=== PATIENT | male | born 1995 | race Caucasian/White ===

== ENCOUNTER 2020-09-08 18:12 | Inpatient (IN) | payer OTHER ==
[~2020-09-08] VITALS: Ht 177.8 cm; Wt 82.9 kg
[2020-09-08] MEDS ORDERED: SODIUM CHLORIDE 0.9% 1,000ML IVBOLUS ONE (18:30)
[2020-09-08] MEDS ORDERED: SODIUM CHLORIDE FLUSH 10ML SYR IVF ONE (18:30)
[2020-09-08 19:02] LABS: BASOPHILS % (AUTO) 0 % (0-1); EOSINOPHILS % (AUTO) 0 % (1-7); LYMPHOCYTES % (AUTO) 4 % (22-44); MEAN CORPUSCULAR HEMOGLOBIN 31.9 pg (27.5-34.5); MEAN CORPUSCULAR HGB CONC 35.9 g/dL (33.2-36.2); MEAN PLATELET VOLUME 8.1 fL (7.4-10.4); MONOCYTES % (AUTO) 13 % (2-9); NEUTROPHILS % (AUTO) 83 % (42-75); PLATELET COUNT 219 x10^3/uL (130-400); RED BLOOD COUNT 4.74 x10^6/uL (4.38-5.82); RED CELL DISTRIBUTION WIDTH 14.2 % (9.4-14.8)
--- NOTE | 2020-09-08 19:09 | NUR ---
REPORT GIVEN TO CLAUDIO OCAMPO.
[2020-09-08 19:10] LABS: ANION GAP 12 mmol/L (5-15); CALCIUM 7.4 mg/dL (8.5-10.1); CHLORIDE 77 mmol/L (98-107); CREATININE 0.71 mg/dL (0.7-1.3)
[2020-09-08 19:23] LABS: MD SCAN
--- NOTE | 2020-09-08 19:23 | NUR ---
[facility] E[facility] 0.458 ERP NOTIFIED AT 1919.
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
[2020-09-08] MEDS ORDERED: OMNIPAQUE 350 MG/ML, 100ML BOTTLE ONE (19:52)
[2020-09-08] MEDS ORDERED: POTASSIUM CHLORIDE 20 MEQ TAB.ER.PRT PO ONE (20:00)
[2020-09-08] MEDS ORDERED: POTASSIUM CHLORIDE 40 MEQ in SODIUM CHLORIDE 0.9% 500 ML IV ONE (20:00)
[2020-09-08] MEDS ORDERED: POTASSIUM CHLORIDE 20 MEQ TAB.ER.PRT ONE (20:02)
--- NOTE | 2020-09-08 20:07 | NUR ---
PT STATES AND FAMILY STATES THAT PT HAS NOT EATEN IN 1 WEEK.
--- NOTE | 2020-09-08 20:13 | NUR ---
PT TO CT
--- NOTE | 2020-09-08 20:21 | NUR ---
PT BACK FROM CT VOMITTED SMALL AMOUNT 10ML.
[2020-09-08] MEDS ORDERED: MAGNESIUM SULFATE PMX 2GM/50ML 50 ML IV ONE (20:30)
[2020-09-08] MEDS ORDERED: AMPICILLIN/SULBACTAM 3 GM in SODIUM CHLORIDE 0.9% 100 ML IV ONE (20:30)
[2020-09-08] MEDS ORDERED: MAGNESIUM SULFATE PMX 2GM/50ML 50 ML ONE (20:45)
--- NOTE | 2020-09-08 21:00 | NUR ---
VERBAL ORDER RECIEVED BY MD HUSSEIN FOR 1 MG ATIVAN IV PUSH.
[2020-09-08] MEDS ORDERED: LORazepam 2 MG/ML, 1ML ONE (21:07)
[2020-09-08] MEDS ORDERED: VANCOMYCIN PER PHARMACY MC PRN (22:00)
[2020-09-08] MEDS ORDERED: VANCOMYCIN PMX 1GM/200ML 200 ML IV ONE (22:00)
[2020-09-08] MEDS ORDERED: PROMETHAZINE 25 MG/ML, 1ML IM PRN (22:30)
[2020-09-08] MEDS ORDERED: POLYETHYLENE GLYCOL 17 GM PACKET PO PRN (22:30)
[2020-09-08] MEDS ORDERED: LORazepam 1MG TABLET PO PRN ×4 (22:30)
[2020-09-08] MEDS ORDERED: ONDANSETRON 2MG/ML, 2ML IVPush PRN (22:30)
[2020-09-08] MEDS ORDERED: LORazepam 2 MG/ML, 1ML IV PRN ×5 (22:30)
[2020-09-08] MEDS ORDERED: INSTRUCTION SEE COMMENTS XX ONE (22:30)
[2020-09-08] MEDS ORDERED: OXYcodone IR 5MG TABLET PO PRN (22:30)
[2020-09-08] MEDS ORDERED: LABETALOL 5MG/ML, 20ML IV PRN (22:30)
[2020-09-08] MEDS ORDERED: PHARMACOKINETIC MONITORING MC PRN (22:30)
[2020-09-08] MEDS ORDERED: DOCUSATE 100 MG CAPSULE PO PRN (22:30)
[2020-09-08] MEDS ORDERED: LORazepam 0.5MG TABLET PO PRN (22:30)
[2020-09-08] MEDS ORDERED: ENALAPRILAT 1.25 MG/ML, 2ML IV PRN (22:30)
[2020-09-08] MEDS ORDERED: PHARMACOKINETIC CONSULTATION MC ONE (22:30)
[2020-09-08] MEDS ORDERED: BISACODYL 10 MG SUPP PR PRN (22:30)
[2020-09-08] MEDS ORDERED: VANCOMYCIN 1,700 MG in SODIUM CHLORIDE 0.9% 250 ML IV ONE (22:30)
[2020-09-08] MEDS ORDERED: ONDANSETRON 4 MG TABLET PO PRN (22:30)
--- NOTE | 2020-09-08 22:40 | NUR ---
PT HAS SPIT UP APPROXIMATELY 50ML OF BLOOD SPUTUM IN THE LAST 3HOURS
--- NOTE | 2020-09-08 22:49 | NUR ---
REPORT GIVEN TO GIOVANNY SNYDER. 544.
--- NOTE | 2020-09-08 22:50 | NUR ---
MOTHER PHONE [phone] BROTHER TY PHONE [phone] ROMERO ALSO INQUIRED OF A COVID TEST IN CASE OF SURGERY.
--- NOTE | 2020-09-08 23:10 | NUR ---
PT DID URINATE APPROXIMATELY 1500ML OVER TOTAL OF 5 DIFFERNT OCCURENCES.
[2020-09-09 00:35] LABS: AMPHETAMINE SCREEN, URINE Negative (Negative); BARBITURATE SCREEN, URINE Negative (Negative); BENZODIAZEPINE SCREEN, URINE Negative (Negative); CANNABINOID SCREEN, URINE Positive (Negative); COCAINE SCREEN, URINE Negative (Negative); METHADONE SCREEN, URINE Negative (Negative); OPIATE SCREEN, URINE Negative (Negative)
[2020-09-09] MEDS: PANTOPRAZOLE 40 MG IV IVPush SCH ×2 (00:40→12:56)
[2020-09-09 04:49] LABS: BASOPHILS % (AUTO) 0 % (0-1); EOSINOPHILS % (AUTO) 0 % (1-7); LYMPHOCYTES % (AUTO) 2 % (22-44); MEAN CORPUSCULAR HEMOGLOBIN 31.9 pg (27.5-34.5); MEAN CORPUSCULAR HGB CONC 35.6 g/dL (33.2-36.2); MEAN PLATELET VOLUME 8.1 fL (7.4-10.4); MONOCYTES % (AUTO) 12 % (2-9); NEUTROPHILS % (AUTO) 86 % (42-75); PLATELET COUNT 163 x10^3/uL (130-400); RED BLOOD COUNT 4.01 x10^6/uL (4.38-5.82); RED CELL DISTRIBUTION WIDTH 14.7 % (9.4-14.8)
[2020-09-09 04:56] LABS: INTERNATIONAL NORMALIZED RATIO 1.01 (0.93-1.1); PROTHROMBIN TIME 10.8 Seconds (9.6-11.5)
[2020-09-09 04:59] LABS: ALBUMIN 2.8 g/dL (3.4-5.0); ANION GAP 15 mmol/L (5-15); CALCIUM 7.5 mg/dL (8.5-10.1); CHLORIDE 84 mmol/L (98-107)
[2020-09-09 05:02] LABS: ALANINE AMINOTRANSFERASE 178 U/L (12-78); ALKALINE PHOSPHATASE 90 U/L (45-117); BILIRUBIN,TOTAL 1.4 mg/dL (0.2-1.0); CHOL/HDL RATIO 3.2; CHOLESTEROL, TOTAL 233 mg/dL (140-239); CREATININE 0.51 mg/dL (0.7-1.3); HDL CHOL % 31 % (26-37); HDL CHOLESTEROL (DIRECT) 72 mg/dL (40-60); LDL CHOLESTEROL,CALCULATED 149 mg/dL (54-169); LDL/HDL RATIO 2.1 (0.5-3.0); TOTAL PROTEIN 5.8 g/dL (6.4-8.2); TRIGLYCERIDES 59 mg/dL (50-200); VLDL CHOLESTEROL 12 mg/dL (0-25)
[2020-09-09] MEDS ORDERED: LORazepam 2 MG/ML, 1ML IVPush ONE (05:30)
[2020-09-09 05:46] LABS: MD SCAN
[2020-09-09] MEDS ORDERED: CHLORDIAZEPOXIDE 25 MG CAPSULE PO SCH ×2 (06:30→14:30)
[2020-09-09] MEDS ORDERED: LORazepam 2 MG/ML, 1ML IVPush PRN (06:30)
[2020-09-09] MEDS: LEVETIRACETAM 500 MG in SODIUM CHLORIDE 0.9% 100 ML IV SCH ×2 (06:44→18:37)
[2020-09-09] MEDS ORDERED: PHENOBARBITAL SODIUM IVPB ONE (07:30)
[2020-09-09] MEDS ORDERED: CHLORDIAZEPOXIDE 25 MG CAPSULE PO ONE (07:30)
[2020-09-09] MEDS ORDERED: PHARMACY INSTRUCTION MC PRN ×4 (07:30)
[2020-09-09] MEDS ORDERED: SODIUM CHLORIDE 0.9% IVPB ONE (07:30)
[2020-09-09] MEDS: POTASSIUM CHLORIDE 20 MEQ TAB.ER.PRT PO SCH ×3 (08:00→16:20)
[2020-09-09] MEDS: AMPICILLIN/SULBACTAM 3 GM in SODIUM CHLORIDE 0.9% 100 ML IV SCH ×3 (08:15→18:40)
[2020-09-09] MEDS: MULTIVITAMINS/MINERALS TABLET PO SCH (08:15)
[2020-09-09] MEDS: POTASSIUM CHLORIDE 20 MEQ, MAGNESIUM SULFATE 1 GM, THIAMINE 200 MG, FOLIC ACID 1 MG, MV... IV SCH (09:22)
[2020-09-09] MEDS: VANCOMYCIN 1,400 MG in SODIUM CHLORIDE 0.9% 250 ML IV SCH ×2 (11:25→22:08)
[2020-09-09] MEDS: PHENOBARBITAL 20 MG/5 ML ORAL SOL PO SCH (16:20)
[2020-09-10] MEDS: PANTOPRAZOLE 40 MG IV IVPush SCH ×2 (00:14→13:29)
[2020-09-10] MEDS: AMPICILLIN/SULBACTAM 3 GM in SODIUM CHLORIDE 0.9% 100 ML IV SCH ×4 (00:14→20:06)
[2020-09-10] MEDS: PHENOBARBITAL 20 MG/5 ML ORAL SOL PO SCH ×2 (03:36→15:56)
[2020-09-10 04:49] LABS: BASOPHILS % (AUTO) 0 % (0-1); EOSINOPHILS % (AUTO) 1 % (1-7); LYMPHOCYTES % (AUTO) 7 % (22-44); MEAN CORPUSCULAR HEMOGLOBIN 32.6 pg (27.5-34.5); MEAN CORPUSCULAR HGB CONC 35.8 g/dL (33.2-36.2); MEAN PLATELET VOLUME 8.5 fL (7.4-10.4); MONOCYTES % (AUTO) 12 % (2-9); NEUTROPHILS % (AUTO) 79 % (42-75); PLATELET COUNT 138 x10^3/uL (130-400); RED BLOOD COUNT 3.76 x10^6/uL (4.38-5.82); RED CELL DISTRIBUTION WIDTH 14.4 % (9.4-14.8)
[2020-09-10 04:51] LABS: MD NO
[2020-09-10 05:06] LABS: CHLORIDE 99 mmol/L (98-107)
[2020-09-10 05:15] LABS: ALANINE AMINOTRANSFERASE 131 U/L (12-78); ALBUMIN 2.5 g/dL (3.4-5.0); ALKALINE PHOSPHATASE 89 U/L (45-117); ANION GAP 10 mmol/L (5-15); BILIRUBIN,TOTAL 1.1 mg/dL (0.2-1.0); TOTAL PROTEIN 5.5 g/dL (6.4-8.2)
[2020-09-10] MEDS: LEVETIRACETAM 500 MG in SODIUM CHLORIDE 0.9% 100 ML IV SCH ×2 (06:04→21:12)
[2020-09-10] MEDS: POTASSIUM CHLORIDE 20 MEQ, MAGNESIUM SULFATE 1 GM, THIAMINE 200 MG, FOLIC ACID 1 MG, MV... IV SCH (06:09)
[2020-09-10] MEDS ORDERED: POTASSIUM CHLORIDE 20 MEQ PACKET PO ONE (08:30)
[2020-09-10] MEDS ORDERED: POTASSIUM PHOSPHATE 44 MEQ in SODIUM CHLORIDE 0.9% 500 ML IV ONE (08:30)
[2020-09-10] MEDS ORDERED: POTASSIUM PHOSPHATE 88 MEQ in SODIUM CHLORIDE 0.9% 1,000 ML IV ONE (09:00)
[2020-09-10] MEDS: MULTIVITAMINS/MINERALS TABLET PO SCH (09:04)
[2020-09-10 10:40] LABS: VANCOMYCIN,TROUGH 4.7 mcg/mL (5.0-10.0)
[2020-09-10] MEDS: VANCOMYCIN 1,400 MG in SODIUM CHLORIDE 0.9% 250 ML IV SCH (10:55)
[2020-09-10] MEDS: VANCOMYCIN 1,100 MG in SODIUM CHLORIDE 0.9% 250 ML IV SCH ×2 (18:21→20:05)
[2020-09-10 18:34] LABS: OCCULT BLOOD POSITIVE (NEGATIVE)
[2020-09-10 19:26] VITALS: BP 139/82
[2020-09-10] MEDS: ACETAMINOPHEN 325 MG TABLET PO PRN (20:10)
[2020-09-11 00:06] VITALS: BP 138/80
[2020-09-11] MEDS: AMPICILLIN/SULBACTAM 3 GM in SODIUM CHLORIDE 0.9% 100 ML IV SCH ×4 (02:00→22:08)
[2020-09-11] MEDS: PANTOPRAZOLE 40 MG IV IVPush SCH ×2 (02:00→13:39)
[2020-09-11] MEDS: PHENOBARBITAL 20 MG/5 ML ORAL SOL PO SCH ×2 (04:15→16:19)
[2020-09-11 05:50] LABS: BASOPHILS % (AUTO) 1 % (0-1); EOSINOPHILS % (AUTO) 4 % (1-7); LYMPHOCYTES % (AUTO) 14 % (22-44); MEAN CORPUSCULAR HEMOGLOBIN 32.7 pg (27.5-34.5); MEAN CORPUSCULAR HGB CONC 35.5 g/dL (33.2-36.2); MEAN PLATELET VOLUME 8.4 fL (7.4-10.4); MONOCYTES % (AUTO) 12 % (2-9); NEUTROPHILS % (AUTO) 69 % (42-75); PLATELET COUNT 153 x10^3/uL (130-400); RED BLOOD COUNT 3.54 x10^6/uL (4.38-5.82); RED CELL DISTRIBUTION WIDTH 14.3 % (9.4-14.8)
[2020-09-11 05:56] LABS: ALBUMIN 2.4 g/dL (3.4-5.0); ANION GAP 8 mmol/L (5-15); CALCIUM 7.6 mg/dL (8.5-10.1); CHLORIDE 105 mmol/L (98-107)
[2020-09-11 06:00] LABS: ALANINE AMINOTRANSFERASE 104 U/L (12-78); ALKALINE PHOSPHATASE 76 U/L (45-117); BILIRUBIN,TOTAL 0.7 mg/dL (0.2-1.0); CREATININE 0.53 mg/dL (0.7-1.3); TOTAL PROTEIN 5.4 g/dL (6.4-8.2)
[2020-09-11 06:02] LABS: MD NO
[2020-09-11 06:48] VITALS: BP 138/87
[2020-09-11] MEDS ORDERED: POTASSIUM CHLORIDE 40 MEQ in SODIUM CHLORIDE 0.9% 500 ML IV ONE (09:00)
[2020-09-11] MEDS ORDERED: POTASSIUM CHLORIDE 20 MEQ TAB.ER.PRT PO ONE (09:00)
[2020-09-11] MEDS: MULTIVITAMINS/MINERALS TABLET PO SCH (09:37)
[2020-09-11] MEDS: LEVETIRACETAM 500 MG in SODIUM CHLORIDE 0.9% 100 ML IV SCH ×2 (09:44→21:15)
[2020-09-11] MEDS: VANCOMYCIN 1,100 MG in SODIUM CHLORIDE 0.9% 250 ML IV SCH ×2 (09:49→17:26)
[2020-09-11 09:59] VITALS: BP 138/88
[2020-09-11 12:31] VITALS: BP 133/87
[2020-09-11] MEDS: HEPARIN 5,000 UNITS/ML, 1ML SQ SCH (16:22)
[2020-09-11] MEDS: ACETAMINOPHEN 325 MG TABLET PO PRN (19:43)
[2020-09-11 20:27] VITALS: BP 135/81
[2020-09-12 00:56] VITALS: BP 137/87
[2020-09-12] MEDS: PANTOPRAZOLE 40 MG IV IVPush SCH ×2 (01:03→12:58)
[2020-09-12] MEDS: VANCOMYCIN 1,100 MG in SODIUM CHLORIDE 0.9% 250 ML IV SCH ×2 (01:03→09:51)
[2020-09-12] MEDS: ACETAMINOPHEN 325 MG TABLET PO PRN ×2 (04:21→12:17)
[2020-09-12] MEDS: PHENOBARBITAL 20 MG/5 ML ORAL SOL PO SCH ×2 (04:21→15:06)
[2020-09-12] MEDS: HEPARIN 5,000 UNITS/ML, 1ML SQ SCH ×3 (04:21→13:18)
[2020-09-12] MEDS: AMPICILLIN/SULBACTAM 3 GM in SODIUM CHLORIDE 0.9% 100 ML IV SCH ×2 (04:22→11:37)
[2020-09-12 05:46] LABS: CHLORIDE 106 mmol/L (98-107)
[2020-09-12 05:59] LABS: ALANINE AMINOTRANSFERASE 83 U/L (12-78); ALBUMIN 2.3 g/dL (3.4-5.0); ALKALINE PHOSPHATASE 66 U/L (45-117); ANION GAP 7 mmol/L (5-15); BILIRUBIN,TOTAL 0.5 mg/dL (0.2-1.0); CALCIUM 7.4 mg/dL (8.5-10.1); CREATININE 0.41 mg/dL (0.7-1.3); TOTAL PROTEIN 5.3 g/dL (6.4-8.2)
[2020-09-12 07:39] VITALS: BP 129/79
[2020-09-12] MEDS ORDERED: MAGNESIUM SULFATE PMX 4GM/100M 100 ML IVPB ONE (08:30)
[2020-09-12] MEDS ORDERED: POTASSIUM CHLORIDE 40 MEQ in SODIUM CHLORIDE 0.9% 500 ML IV ONE ×2 (08:30→18:00)
[2020-09-12] MEDS: MULTIVITAMINS/MINERALS TABLET PO SCH (09:10)
[2020-09-12] MEDS: LEVETIRACETAM 500 MG in SODIUM CHLORIDE 0.9% 100 ML IV SCH (09:10)
[2020-09-12] MEDS ORDERED: MAGNESIUM CHLORIDE 64 MG TABLET.DR ONE (10:25)
[2020-09-12] MEDS ORDERED: MAGNESIUM CHLORIDE 64 MG TABLET.DR PO SCH (10:30)
[2020-09-12 12:04] VITALS: BP 136/81
[2020-09-12] MEDS ORDERED: LEVE500T53 PO (14:42)
[2020-09-12] MEDS ORDERED: AMOX1TAB64 PO (14:42)
[2020-09-13] MEDS ORDERED: PHENOBARBITAL 20 MG/5 ML ORAL SOL PO SCH (16:00)
[2020-09-14] MEDS ORDERED: PHENOBARBITAL 20 MG/5 ML ORAL SOL PO SCH (16:00)
== END 2020-09-12 17:07 | disposition home or self-care (01) | DRG 86 ==
LOC: ED 21:29 → EDIP 21:34 → CCU 23:16 → 5SO 09-10 15:13 → 4EST 09-11 09:16 → DCLOUNGE 09-12 17:00
PROVIDERS: ADMIT Internal Medicine; ATTEND Internal Medicine
DX: S06.4X0A Epidural hemorrhage without loss of consciousness, initial encounter (principal); F10.231 Alcohol dependence with withdrawal delirium; S02.19XA Other fracture of base of skull, initial encounter for closed fracture; Z20.822 Contact with and (suspected) exposure to COVID-19; E83.39 Other disorders of phosphorus metabolism; E87.6 Hypokalemia; F10.229 Alcohol dependence with intoxication, unspecified; K05.10 Chronic gingivitis, plaque induced; K70.10 Alcoholic hepatitis without ascites; F17.210 Nicotine dependence, cigarettes, uncomplicated; W18.39XA Other fall on same level, initial encounter; Y93.89 Activity, other specified; Y92.89 Other specified places as the place of occurrence of the external cause; Y99.8 Other external cause status
CPT/HCPCS: 36415; 70450; 70491; 80048; 80053; 80061; 80202; 80307; 80320; 82040; 82272; 83735; 84100; 84132; 85025; 85610; 87081; 87880; 93005; 99291; G0378; J0295; J1644; J1953; J2560; J3370; J3411; J3475; J3480; Q9967; C9113; G0480; J2060; J7030; J7040; J7050

== ENCOUNTER 2021-02-01 12:21 | Inpatient (IN) | payer MEDICAID ==
[~2021-02-01] VITALS: Ht 172.7 cm; Wt 79.5 kg
[~2021-02-01 12:21] MED LIST: AMOX1TAB64 PO; LEVE500T53 PO
--- NOTE | 2021-02-01 13:47 | NUR ---
service support representative: attempted to move pt from lobby to room, no answer in lobby
--- NOTE | 2021-02-01 14:10 | NUR ---
lead etl developer: Pt ambulatory to room from lobby at this time.
[2021-02-01] MEDS ORDERED: SODIUM CHLORIDE 0.9% 1,000ML IVBOLUS ONE (14:30)
[2021-02-01] MEDS ORDERED: ONDANSETRON 2MG/ML, 2ML IVPush ONE ×2 (14:30→19:30)
[2021-02-01] MEDS ORDERED: ONDANSETRON 2MG/ML, 2ML ONE ×2 (14:30→19:10)
[2021-02-01] MEDS ORDERED: MORPHINE SULFATE 4 MG/ML, 1ML ONE ×3 (14:30→19:10)
[2021-02-01] MEDS ORDERED: FAMOTIDINE 20 MG/2 ML IVPush ONE (14:30)
[2021-02-01] MEDS ORDERED: FAMOTIDINE 20 MG/2 ML ONE (14:31)
--- NOTE | 2021-02-01 14:42 | NUR ---
PATIENT HERE WITH CHIEF C/O ABD PAIN X1 WEEK. PATIENT REPORTS N/V NO DIARRHEA, DENIES FEVER. HAS HX OF PANCREATITIS. NADN, CONNECTED TO MONITOR, VSS, CALL LIGHT WITHIN REACH. 20 GAUGE IV STARTED LEFT AC, BLOOD COLLECTED AND GIVEN TO TREE PLANTER, PATIENT MEDICATED PER eMAR.
[2021-02-01] MEDS: MORPHINE SULFATE 4 MG/ML, 1ML IVPush PRN ×3 (14:44→19:15)
[2021-02-01 14:51] LABS: BASOPHILS % (AUTO) 1 % (0-1); EOSINOPHILS % (AUTO) 0 % (1-7); LYMPHOCYTES % (AUTO) 4 % (22-44); MEAN CORPUSCULAR HEMOGLOBIN 31.2 pg (27.5-34.5); MEAN CORPUSCULAR HGB CONC 35.3 g/dL (33.2-36.2); MEAN PLATELET VOLUME 9.4 fL (7.4-10.4); MONOCYTES % (AUTO) 8 % (2-9); NEUTROPHILS % (AUTO) 87 % (42-75); PLATELET COUNT 172 x10^3/uL (130-400); RED BLOOD COUNT 4.79 x10^6/uL (4.38-5.82); RED CELL DISTRIBUTION WIDTH 14.1 % (9.4-14.8)
[2021-02-01 15:01] LABS: ALANINE AMINOTRANSFERASE 144 U/L (12-78); ALBUMIN 3.4 g/dL (3.4-5.0); ANION GAP 7 mmol/L (5-15); CALCIUM 9.1 mg/dL (8.5-10.1); CHLORIDE 92 mmol/L (98-107); CREATININE 0.88 mg/dL (0.7-1.3)
[2021-02-01 15:03] LABS: ALKALINE PHOSPHATASE 77 U/L (45-117); BILIRUBIN,TOTAL 2.9 mg/dL (0.2-1.0); TOTAL PROTEIN 6.8 g/dL (6.4-8.2)
[2021-02-01 15:10] LABS: MICROSCOPIC INDICATED
--- NOTE | 2021-02-01 15:13 | NUR ---
PATIENT TO IMAGING.
--- NOTE | 2021-02-01 15:49 | NUR ---
PATIENT BACK IN ROOM ,RESTING IN [facility], CONNECTED TO MONITOR, VSS, CALL LIGHT WITHIN REACH. PATIENT UP FOR RECHECK.
[2021-02-01] MEDS ORDERED: POTASSIUM CHLORIDE 20 MEQ TAB.ER.PRT ONE (16:11)
[2021-02-01] MEDS ORDERED: NS + 40MEQ KCL 1,000 ML IV ONE (16:11)
[2021-02-01] MEDS ORDERED: POTASSIUM CHLORIDE 20 MEQ TAB.ER.PRT PO ONE (16:30)
[2021-02-01] MEDS ORDERED: POTASSIUM CHLORIDE 40 MEQ in SODIUM CHLORIDE 0.9% 500 ML IV ONE (16:30)
--- NOTE | 2021-02-01 16:44 | NUR ---
PATIENT REPORTS 8/10 ABD PAIN, MEDICATED PER eMAR, CONNECTED TO MONITOR, VSS, CALL LIGHT WITHIN REACH. WAITING FOR CT SCAN.
[2021-02-01] MEDS ORDERED: OMNIPAQUE 350 MG/ML, 100ML BOTTLE ONE (17:23)
[2021-02-01] MEDS ORDERED: CEFTRIAXONE 1,000 MG in DEXTROSE 5% 50 ML IVPB ONE (19:30)
[2021-02-01] MEDS ORDERED: POTASSIUM CHLORIDE 20 MEQ in LACTATED RINGERS 1,000 ML IV SCH (20:30)
[2021-02-01] MEDS ORDERED: MELATONIN 5 MG TABLET PO PRN (20:30)
[2021-02-01] MEDS ORDERED: BISACODYL 10 MG SUPP PR PRN (20:30)
[2021-02-01 20:31] VITALS: BP 144/90
[2021-02-01] MEDS ORDERED: [UNRECOGNIZED DRUG - REMARK] MC SCH ×2 (21:00→21:34)
[2021-02-01] MEDS ORDERED: NICOTINE 21 MG/24 HR PATCH.TD24 TD ONE (21:30)
[2021-02-01] MEDS ORDERED: PROMETHAZINE 25 MG/ML, 1ML IM PRN (21:30)
[2021-02-01] MEDS ORDERED: POTASSIUM CHLORIDE 20 MEQ in SODIUM CHLORIDE 0.9% 1,000 ML IV SCH (21:30)
[2021-02-01] MEDS: morphine SULFATE 10 MG/ML, 1ML IVPush PRN (22:30)
[2021-02-02] MEDS: morphine SULFATE 10 MG/ML, 1ML IVPush PRN ×2 (01:29→04:29)
[2021-02-02 01:39] VITALS: BP 125/85
[2021-02-02] MEDS: ONDANSETRON 2MG/ML, 2ML IVPush PRN ×2 (02:30→08:11)
[2021-02-02] MEDS ORDERED: NICOTINE 21 MG/24 HR PATCH.TD24 ONE (06:27)
[2021-02-02 06:44] LABS: BASOPHILS % (AUTO) 0 % (0-1); EOSINOPHILS % (AUTO) 0 % (1-7); LYMPHOCYTES % (AUTO) 10 % (22-44); MEAN CORPUSCULAR HEMOGLOBIN 31.8 pg (27.5-34.5); MEAN CORPUSCULAR HGB CONC 35.5 g/dL (33.2-36.2); MEAN PLATELET VOLUME 9.8 fL (7.4-10.4); MONOCYTES % (AUTO) 7 % (2-9); NEUTROPHILS % (AUTO) 83 % (42-75); PLATELET COUNT 118 x10^3/uL (130-400); RED BLOOD COUNT 4.25 x10^6/uL (4.38-5.82); RED CELL DISTRIBUTION WIDTH 14.2 % (9.4-14.8)
[2021-02-02 06:52] LABS: ALBUMIN 2.8 g/dL (3.4-5.0); ANION GAP 4 mmol/L (5-15); CALCIUM 7.8 mg/dL (8.5-10.1); CHLORIDE 105 mmol/L (98-107)
[2021-02-02 06:56] LABS: ALANINE AMINOTRANSFERASE 103 U/L (12-78); ALKALINE PHOSPHATASE 66 U/L (45-117); BILIRUBIN,TOTAL 2.3 mg/dL (0.2-1.0); CREATININE 0.65 mg/dL (0.7-1.3); TOTAL PROTEIN 5.9 g/dL (6.4-8.2)
[2021-02-02 07:30] VITALS: BP 143/90
[2021-02-02] MEDS ORDERED: POTASSIUM CHLORIDE 20 MEQ TAB.ER.PRT PO ONE (08:00)
[2021-02-02] MEDS: MORPHINE SULFATE 4 MG/ML, 1ML IVPush PRN (08:11)
[2021-02-02] MEDS ORDERED: CEFTRIAXONE 1,000 MG in DEXTROSE 5% 50 ML IVPB SCH (20:00)
== END 2021-02-02 11:05 | disposition left against medical advice (07) | DRG 432 ==
LOC: ED 15:56 → EDIP 19:16 → 4EST 20:25
PROVIDERS: ADMIT Emergency Medicine; ATTEND Hospitalist
DX: K70.10 Alcoholic hepatitis without ascites (principal); K85.90 Acute pancreatitis without necrosis or infection, unspecified; K86.1 Other chronic pancreatitis; N39.0 Urinary tract infection, site not specified; E86.0 Dehydration; E87.6 Hypokalemia; F10.20 Alcohol dependence, uncomplicated; K20.90 Esophagitis, unspecified without bleeding; K76.0 Fatty (change of) liver, not elsewhere classified
CPT/HCPCS: 36415; 74177; 76700; 80053; 81001; 83690; 83735; 84100; 85025; 87086; 87491; 87591; 93005; 96361; 96374; 96375; 96376; G0378; J0696; J2405; J2550; J3480; Q9967; J2270; J7030; J7040; J7120

== ENCOUNTER 2021-02-02 16:25 | Emergency (ER) | payer MEDICAID ==
[~2021-02-02] VITALS: Ht 172.7 cm; Wt 76.8 kg
[2021-02-02 16:41] VITALS: BP 124/88
--- NOTE | 2021-02-02 16:49 | NUR ---
PT RESTING ON GURNEY, CONNECTED TO ALL MONITORS. PT HAS HX OF FALLS AND ICH. PT STATES HE HAS BEEN HAVING AUDIO AND VISUAL HALLUCINATIONS
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
[2021-02-02 17:20] LABS: AMPHETAMINE SCREEN, URINE Negative (Negative); BARBITURATE SCREEN, URINE Negative (Negative); BENZODIAZEPINE SCREEN, URINE Negative (Negative); CANNABINOID SCREEN, URINE Positive (Negative); COCAINE SCREEN, URINE Negative (Negative); METHADONE SCREEN, URINE Negative (Negative); OPIATE SCREEN, URINE Positive (Negative)
[2021-02-02 17:24] LABS: BASOPHILS % (AUTO) 1 % (0-1); EOSINOPHILS % (AUTO) 0 % (1-7); LYMPHOCYTES % (AUTO) 9 % (22-44); MEAN CORPUSCULAR HEMOGLOBIN 31.3 pg (27.5-34.5); MEAN CORPUSCULAR HGB CONC 34.8 g/dL (33.2-36.2); MEAN PLATELET VOLUME 9.5 fL (7.4-10.4); MONOCYTES % (AUTO) 8 % (2-9); NEUTROPHILS % (AUTO) 82 % (42-75); PLATELET COUNT 150 x10^3/uL (130-400); RED BLOOD COUNT 4.49 x10^6/uL (4.38-5.82); RED CELL DISTRIBUTION WIDTH 14.2 % (9.4-14.8)
[2021-02-02 17:31] LABS: ANION GAP 6 mmol/L (5-15); CALCIUM 8.6 mg/dL (8.5-10.1); CHLORIDE 105 mmol/L (98-107); CREATININE 0.89 mg/dL (0.7-1.3)
== END 2021-02-02 18:04 | disposition home or self-care (01) ==
LOC: ED 16:30
DX: F12.122 Cannabis abuse with intoxication with perceptual disturbance (principal); F11.122 Opioid abuse with intoxication with perceptual disturbance; F41.9 Anxiety disorder, unspecified; R00.2 Palpitations
CPT/HCPCS: 36415; 80048; 80307; 85025; 93005; 99284

== ENCOUNTER 2021-02-03 00:23 | Emergency (ER) | payer MEDICAID ==
[~2021-02-03] VITALS: Ht 172.7 cm; Wt 77.3 kg
[2021-02-03 00:27] VITALS: BP 155/100
--- NOTE | 2021-02-03 01:33 | NUR ---
PATIENT WANTING TO LEAVE ER. PATIENT ALERT AND ORIENTED TIMES 4, VSS, AMBULATES WITHOUT ASSISTANCE. PATIENT LEFT ER AND ELOPED
== END 2021-02-03 01:29 | disposition left against medical advice (07) ==
LOC: ED 00:30
DX: F12.129 Cannabis abuse with intoxication, unspecified (principal); F10.129 Alcohol abuse with intoxication, unspecified; F11.129 Opioid abuse with intoxication, unspecified; Z72.9 Problem related to lifestyle, unspecified; F17.200 Nicotine dependence, unspecified, uncomplicated; Y90.0 Blood alcohol level of less than 20 mg/100 ml
CPT/HCPCS: 99283